=== PATIENT | male | born 1960 | race Caucasian/White ===

== ENCOUNTER 2018-04-02 08:50 | Emergency (ER) | payer OTHER ==
[2018-04-02 09:00] VITALS: BMI 24.1
[2018-04-02 09:01] VITALS: BP 146/80; PULSE 58; RESP 20; TEMP 98.6; O2SAT 100
--- NOTE | 2018-04-02 09:24 | C.PDOC ---
History Of Present Illness 57 years old male presents to the ED complaining of left shoulder pain onset 3 weeks. Patient reports worsening of pain with movement and decrease of motion when stretching his left arm. He rates pain as 6 out of 10 scale. Patient reports taking Ibuprofen with minimal relief. He denies any trauma, fever, headache, chills nausea or vomiting. PMD: non provided Time Seen by Provider: 04/02/18 09:05 Chief Complaint (Nursing): Upper Extremity Problem/Injury History Per: Patient History/Exam Limitations: no limitations Onset/Duration Of Symptoms: Days (x14) Pain Scale Rating Of: 6 Past Medical History Reviewed: Historical Data, Nursing Documentation, Vital Signs Vital Signs: Last Vital Signs Temp 98.6 F 04/02/18 08:59 Pulse 58 L 04/02/18 08:59 Resp 20 04/02/18 08:59 BP 146/80 04/02/18 08:59 Pulse Ox 100 04/02/18 10:46 - Medical History PMH: No Chronic Diseases Surgical History: No Surg Hx Family History: States: Unknown Family Hx - Social History Hx Tobacco Use: No Hx Alcohol Use: No Hx Substance Use: No - Immunization History Hx Tetanus Toxoid Vaccination: No Hx Influenza Vaccination: No Hx Pneumococcal Vaccination: No Review Of Systems Except As Marked, All Systems Reviewed And Found Negative. Constitutional: Negative for: Fever, Chills Gastrointestinal: Negative for: Nausea, Vomiting Musculoskeletal: Positive for: Shoulder Pain (Left) Neurological: Negative for: Headache Physical Exam - Physical Exam Appears: Non-toxic, No Acute Distress Skin: Normal Color, Warm, Dry Head: Atraumatic Extremity: Tenderness (mucular tenderness to left shoulder), No Deformity Neurological/Psych: Oriented x3 ED Course And Treatment O2 Sat by Pulse Oximetry: 100 (RA) Pulse Ox Interpretation: Normal Medical Decision Making Medical Decision Making: Time: 922 Initial plan: --Motrin 600 mg PO --Tylenol 325 mg PO --Left Shoulder Rad Time: 1000 Left Shoulder Rad FINDINGS: BONES: Normal. No fracture. JOINTS: Normal. Glenohumeral and acromioclavicular joints preserved. No osteoarthritis. SOFT TISSUES: Normal. OTHER FINDINGS: None. IMPRESSION: Normal radiographs of the left shoulder. Shoulder image reviewed and within normal limits. Patient is stable for discharge with prescription of Motrin and instructed to follow up with the clinic Orthopedic. Disposition Counseled Patient/Family Regarding: Studies Performed, Diagnosis, Need For Followup, Rx Given - Disposition Referrals: [facility] [Outside] Disposition: HOME/ ROUTINE Disposition Time: 10:34 Condition: STABLE Additional Instructions: Please follow up in the clinic for Orthopedics. Prescriptions: Ibuprofen [Motrin] 1 tab PO TID PRN #30 tab PRN Reason: Pain Ibuprofen [Motrin] 1 tab PO TID PRN #30 tab PRN Reason: Pain Instructions: Shoulder Sprain Forms: [facility] (Hebrew), General Discharge Instructions - POA Present On Arrival: None - Clinical Impression Clinical Impression: Muscle strain - Scribe Statement The provider has reviewed the documentation as recorded by the Scribe (Ju Selby)
--- NOTE | 2018-04-02 10:02 | RAD ---
PROCEDURE: Radiographs of the Left Shoulder HISTORY: pain with movement COMPARISON: No prior. FINDINGS: BONES: Normal. No fracture. JOINTS: Normal. Glenohumeral and acromioclavicular joints preserved. No osteoarthritis. SOFT TISSUES: Normal. OTHER FINDINGS: None. IMPRESSION: Normal radiographs of the left shoulder.
== END 2018-04-02 10:51 | disposition home or self-care (01) ==
LOC: C.ER 08:50
DX: S46.912A Strain of unspecified muscle, fascia and tendon at shoulder and upper arm level, left arm, initial encounter (principal); X58.XXXA Exposure to other specified factors, initial encounter